=== PATIENT | male | born 1985 | race Caucasian/White ===

== ENCOUNTER 2023-03-04 09:20 | Outpatient (CLI) | payer BC | END 2023-03-04 09:21 | disposition home or self-care (01) | LOC: MRI 09:20 | PROVIDERS: ATTEND Family Medicine | DX: M43.06 Spondylolysis, lumbar region (principal) | CPT/HCPCS: 72148 ==

== ENCOUNTER 2024-02-28 10:40 | Outpatient (CLI) | payer BC | END 2024-02-28 10:41 | disposition home or self-care (01) | LOC: SCSMRI 10:40 | PROVIDERS: ATTEND Family Medicine | DX: M25.512 Pain in left shoulder (principal); S43.432A Superior glenoid labrum lesion of left shoulder, initial encounter; S46.892A Other injury of other muscles, fascia and tendons at shoulder and upper arm level, left arm, initial encounter ==